=== PATIENT | male | born 1960 | race Caucasian/White ===

== ENCOUNTER 2018-01-31 03:58 | Emergency (ER) | payer BC ==
[~2018-01-31] VITALS: Ht 185.4 cm; Wt 93.1 kg
[2018-01-31] MEDS ORDERED: normal saline 1000ML IV soln IVB ONE (04:15)
[2018-01-31] MEDS ORDERED: ketorolac trometh. 30mg/ml inj. IV ONE (04:15)
[2018-01-31] MEDS ORDERED: ondansetron/PF 4mg/2ml inj IV ONE (04:15)
[2018-01-31 04:54] LABS: BASOPHILS % (AUTO) 0.2 % (0-1); EOSINOPHILS % (AUTO) 0 % (0-6); HEMATOCRIT 51.6 % (42.0-52.0); HEMOGLOBIN 16.9 g/dl (14.0-17.9); LYMPHOCYTES # (AUTO) 0.7 X10'3 (1.1-4.8); LYMPHOCYTES % (AUTO) 4.9 % (21-51); MEAN CORPUSCULAR HEMOGLOBIN 31.7 PG (27.0-31.0); MEAN CORPUSCULAR HGB CONC 32.8 % (33.0-36.5); MEAN CORPUSCULAR VOLUME 96.4 FL (78-98); MEAN PLATELET VOLUME 8.3 FL (7.4-10.4); NEUTROPHILS # (AUTO) 13.1 X10'3 (1.8-7.7); NEUTROPHILS % (AUTO) 87.9 % (42-75); PLATELET COUNT 177 X10'3 (140-440); RED BLOOD COUNT 5.35 X10'6 (4.70-6.10); RED CELL DISTRIBUTION WIDTH 13.4 % (11.5-14.5)
[2018-01-31 05:06] LABS: ALANINE AMINOTRANSFERASE 34 U/L (12-78); ALBUMIN 3.4 G/DL (3.4-5.0); ALBUMIN/GLOBULIN RATIO 0.9 (1.1-1.5); ALKALINE PHOSPHATASE 66 IU/L (46-116); ANION GAP 11 (8-16); ASPARTATE AMINO TRANSFERASE 29 U/L (10-37); BILIRUBIN,TOTAL 0.4 MG/DL (0.1-1.0); BLOOD UREA NITROGEN 24 MG/DL (7-18); BUN/CREATININE RATIO 26.7 (5.4-32.0); CALCIUM 9.1 MG/DL (8.5-10.1); CHLORIDE 98 MMOL/L (99-107); GLUCOSE 133 MG/DL (70-104); LIPASE 155 U/L (73-393); POTASSIUM 3.7 MMOL/L (3.5-5.1); SODIUM 136 MMOL/L (135-145); TOTAL CARBON DIOXIDE 27.5 MMOL/L (24-32); TOTAL PROTEIN 7.3 G/DL (6.4-8.2); eGFR 86 ML/MIN
[2018-01-31 05:35] LABS: CLARITY,URINE CLEAR (Clear); COLOR,URINE YELLOW (Yellow); GLUCOSE, URINE NEGATIVE (Neg); KETONES,URINE 40 mg/dl (Neg); LEUKOCYTE ESTERASE ,URINE NEGATIVE (Neg); NITRITES, URINE NEGATIVE (Neg); OCCULT BLOOD,URINE NEGATIVE (Neg); PROTEIN,URINE 30 mg/dl (Neg)
[2018-01-31 05:39] LABS: UA COLLECTION TYPE CLN CATCH MIDSTREAM
[2018-01-31 05:48] VITALS: BP 133/90
[2018-01-31] MEDS ORDERED: morphine 4 MG/ML inj SYRINge IV ONE (06:05)
[2018-01-31] MEDS ORDERED: ONDA4TAB9 PO (06:07)
[2018-01-31] MEDS ORDERED: ACET-3067 PO (06:07)
[2018-01-31] MEDS ORDERED: AZIT-72 PO (06:07)
[2018-01-31 06:11] LABS: WBC,URINE 0-4 /HPF (0-4)
[2018-01-31 06:12] LABS: BACTERIA,URINE FEW /HPF (Neg); MUCUS STRANDS MODERATE /LPF (Neg); RBC,URINE 0-2 /HPF (0-2); SQUAMOUS EPITHELIAL CELL,UR NONE SEEN /LPF (FEW)
[2018-01-31] MEDS ORDERED: TAM75C PO (06:30)
[2018-01-31 07:57] LABS: PLATELET ESTIMATE NORMAL; TOTAL CELLS COUNTED 100
[2018-01-31 08:01] LABS: TOXIC VACUOLATION 1+
== END 2018-01-31 06:26 | disposition home or self-care (01) ==
LOC: ER 03:59
DX: K52.9 Noninfective gastroenteritis and colitis, unspecified (principal); R06.02 Shortness of breath; K59.00 Constipation, unspecified; I10 Essential (primary) hypertension; J45.909 Unspecified asthma, uncomplicated; Z72.820 Sleep deprivation
CPT/HCPCS: 36415; 71045; 74176; 80053; 81001; 83690; 85025; 87502; 87503; 96374; 96375; 99285; J1885; J2270; J2405; J7030